=== PATIENT | male | born 1965 | race Caucasian/White ===

== ENCOUNTER 2021-04-25 10:10 | Observation (INO) ==
[2021-04-25] MEDS ORDERED: 0.9 % Sodium Chloride 1,000 ML IVC ONE (10:47)
[2021-04-25 11:29] LABS: Basophils % 0.5 %; Eosinophils # 0.1 K/mcL (0.0-0.6); Eosinophils % 1.5 %; Hematocrit 46.9 % (37.5-50.1); Hemoglobin 16.5 g/dL (12.9-16.9); Immature Granulocytes % 0.1 % (0-4); Lymphocytes % 13.1 %; Mean Corpuscular HGB Conc 35.2 g/dL (31.6-35.5); Mean Corpuscular Hemoglobin 31.6 pg (28.0-33.3); Mean Corpuscular Volume 89.8 fL (83.0-100.0); Mean Platelet Volume 11.2 fL (9.4-12.4); Monocytes # 0.5 K/mcL (0.0-1.3); Monocytes % 6.4 %; Neutrophils # 6.1 K/mcL (1.6-8.9); Platelet Count 160 K/mcL (140-400); Red Blood Count 5.22 M/mcL (4.19-5.50); Red Cell Distribution Width 12.3 % (11.5-14.5); Segmented Neutrophils % 78.4 %; White Blood Count 7.8 K/mcL (4.3-11.1)
[2021-04-25 11:39] LABS: INR 1.1; Prothrombin Time 11.8 Seconds (9.4-12.1)
[2021-04-25 11:49] LABS: BUN/Creatinine Ratio 19 (6-26); Blood Urea Nitrogen 20 mg/dL (6-20); Calcium 9.2 mg/dL (8.6-10.3); Carbon Dioxide 24 mEq/L (23-29); Chloride 104 mEq/L (98-107); Glucose 99 mg/dL (70-105); Osmolality,Calculated 285 (280-300); Potassium 4.4 mEq/L (3.5-5.1); Sodium 136 mEq/L (136-145); eGFR For African Americans > 60 (> 60); eGFR For Non-African Americans > 60 (> 60)
[2021-04-25 11:58] LABS: Troponin I 0.04 ng/mL (< 0.04)
[2021-04-25] MEDS ORDERED: Ondansetron ODT 4 MG TAB.RAPDIS SL PRN (13:16)
[2021-04-25] MEDS ORDERED: MOM Conc 10 ML UD.LIQ PO PRN (13:16)
[2021-04-25] MEDS ORDERED: Mag Hydrox/Al Hydrox/Simeth 30 ML UDC PO PRN (13:16)
[2021-04-25] MEDS ORDERED: Naloxone 0.4 MG/ML INJ IVP PRN (13:16)
[2021-04-25] MEDS ORDERED: Melatonin 3 MG TABLET PO PRN (13:16)
[2021-04-25] MEDS ORDERED: Perflutren Lipid Microsphere 1.3 ML in 0.9 % Sodium Chloride 8.7 ML IVP PRN (13:25)
[2021-04-25] MEDS: lisinopriL 10 MG TABLET PO SCH (16:14)
[2021-04-25] MEDS ORDERED: *HR* LORazepam 0.5 MG TABLET PO ONE (19:54)
[2021-04-26 00:56] LABS: Hematocrit 42.7 % (37.5-50.1); Mean Corpuscular HGB Conc 34.2 g/dL (31.6-35.5); Mean Corpuscular Hemoglobin 30.4 pg (28.0-33.3); Mean Corpuscular Volume 88.8 fL (83.0-100.0); Mean Platelet Volume 10.9 fL (9.4-12.4); Platelet Count 165 K/mcL (140-400); Red Blood Count 4.81 M/mcL (4.19-5.50); Red Cell Distribution Width 12.5 % (11.5-14.5); White Blood Count 6.4 K/mcL (4.3-11.1)
[2021-04-26 00:57] LABS: Hemoglobin 14.6 g/dL (12.9-16.9)
[2021-04-26 01:14] LABS: BUN/Creatinine Ratio 14 (6-26); Blood Urea Nitrogen 16 mg/dL (6-20); Calcium 8.8 mg/dL (8.6-10.3); Carbon Dioxide 25 mEq/L (23-29); Chloride 105 mEq/L (98-107); Glucose 110 mg/dL (70-105); Osmolality,Calculated 286 (280-300); Potassium 3.7 mEq/L (3.5-5.1); Sodium 137 mEq/L (136-145); eGFR For African Americans > 60 (> 60); eGFR For Non-African Americans > 60 (> 60)
[2021-04-26] MEDS ORDERED: Regadenoson 0.4 MG/5 ML SYRINGE IVP ONE (06:17)
[2021-04-26] MEDS ORDERED: *HR* Heparin 5,000 UNIT/ML VIAL IVP PRN ×2 (07:44)
[2021-04-26] MEDS ORDERED: Heparin 25,000UNIT/250ML 1/2NS 25,000 UNIT/250 ML IV.SOLN IVC SCH (07:45)
[2021-04-26] MEDS: lisinopriL 10 MG TABLET PO SCH ×2 (08:28→09:17)
[2021-04-26 09:02] LABS: Heparin anti-factor XA UFH < 0.04 IU/mL (0.30-0.70)
[2021-04-26 09:03] LABS: INR 1.1; Prothrombin Time 12.2 Seconds (9.4-12.1)
[2021-04-26] MEDS: *HR* Heparin 5,000 UNIT/ML VIAL IVP ONE ×2 (09:16→09:36)
[2021-04-26 09:23] LABS: Hematocrit 46.1 % (37.5-50.1); Hemoglobin 15.9 g/dL (12.9-16.9); Mean Corpuscular HGB Conc 34.5 g/dL (31.6-35.5); Mean Corpuscular Hemoglobin 30.8 pg (28.0-33.3); Mean Corpuscular Volume 89.3 fL (83.0-100.0); Mean Platelet Volume 11.3 fL (9.4-12.4); Platelet Count 163 K/mcL (140-400); Red Blood Count 5.16 M/mcL (4.19-5.50); Red Cell Distribution Width 12.4 % (11.5-14.5); White Blood Count 6.4 K/mcL (4.3-11.1)
[2021-04-26] MEDS ORDERED: Aspirin 325 MG TABLET PO SCH (12:30)
[2021-04-26] MEDS ORDERED: *HR* LORazepam 0.5 MG TABLET PO PRN (22:16)
[2021-04-27] MEDS: Acetaminophen 325 MG TABLET PO PRN ×3 (00:10→20:10)
[2021-04-27] MEDS ORDERED: *HR* FentaNYL (PF) 100 MCG/2 ML VIAL ONE ×2 (15:00→16:31)
[2021-04-27] MEDS ORDERED: Heparin 1,000 UNITS/500 mL 500 ML ONE ×2 (15:01→16:21)
[2021-04-27] MEDS ORDERED: *HR* Heparin 10,000 UNIT/10 ML VIAL ONE (15:01)
[2021-04-27] MEDS ORDERED: 0.9 % Sodium Chloride 2,000 ML ONE (15:01)
[2021-04-27] MEDS ORDERED: ISOVUE-370 200 ML INFUS..BTL ONE ×2 (15:01→16:37)
[2021-04-27] MEDS ORDERED: Nitroglycerin 1,000 MCG/5 ML VIAL IV ONE (15:01)
[2021-04-27] MEDS ORDERED: *HR* Midazolam HCl 2 MG/2 ML VIAL ONE ×3 (15:01→16:32)
[2021-04-28] MEDS: Acetaminophen 325 MG TABLET PO PRN (04:13)
[2021-04-28 06:55] VITALS: BP 133/82; PULSE 58; TEMP 97.8; O2SAT 95
[2021-04-28] MEDS ORDERED: Aspirin Enteric Coated 81 MG Tablet PO SCH (09:00)
== END 2021-04-28 12:40 | disposition home or self-care (01) ==
LOC: 3BNU 10:10 → EMEROOARM 10:10 → SUATTDRO 12:49 → 3BNU 13:45
PROVIDERS: ADMIT Family Medicine; ATTEND Registered Nurse